=== PATIENT | female | born 2005 | race Two or more races ===

== ENCOUNTER 2024-01-29 22:28 | Emergency (ER) | payer BC, OTHER ==
[~2024-01-29] VITALS: Ht 172.7 cm; Wt 92.0 kg
[2024-01-29 23:43] VITALS: BP 109/81; PULSE 99
[2024-01-29 23:50] VITALS: RESP 19; O2SAT 98
[2024-01-29] MEDS: IPRATROPIUM BROM 0.5 MG/2.5ML INH SOL NEB ONE (23:50)
[2024-01-29] MEDS: ALBUTEROL SULF 2.5 MG/0.5ML(0.5%) NEB SOLN NEB ONE (23:50)
[2024-01-29] MEDS: DexAMETHasone SOD PHOS 10MG/1ML VIAL INJ IM ONE (23:52)
[2024-01-30] MEDS ORDERED: PRED20TA2 PO (00:41)
[2024-01-30] MEDS ORDERED: ALBU1AER4 IN (00:41)
== END 2024-01-30 00:49 | disposition home or self-care (01) ==
LOC: ER 22:28
DX: J45.901 Unspecified asthma with (acute) exacerbation (principal)
CPT/HCPCS: 71045; 94640; 96372; 99283; J1100